=== PATIENT | male | born 1990 | race Hispanic/Latino ===

== ENCOUNTER 2017-10-31 06:54 | Emergency (ER) | payer OTHER | END 2017-10-31 07:20 | disposition home or self-care (01) | LOC: NAV ERS 06:54 | DX: H66.91 Otitis media, unspecified, right ear (principal); E78.5 Hyperlipidemia, unspecified; F84.0 Autistic disorder; F32.9 Major depressive disorder, single episode, unspecified | CPT/HCPCS: 99282 ==

== ENCOUNTER 2017-12-02 15:36 | Emergency (ER) | payer OTHER | END 2017-12-02 16:00 | disposition home or self-care (01) | LOC: NAV ERS 15:36 | DX: J01.00 Acute maxillary sinusitis, unspecified (principal); R04.0 Epistaxis; E78.5 Hyperlipidemia, unspecified; F84.0 Autistic disorder; F32.9 Major depressive disorder, single episode, unspecified | CPT/HCPCS: 99283 ==